=== PATIENT | male | born 1945 | race Caucasian/White ===

== ENCOUNTER 2020-05-04 11:55 | Outpatient (CLI) | payer OTHER, SELFPAY ==
[2020-05-04 12:19] LABS: Basophils % 0.4 %; Eosinophils # 0.1 10^3/uL (0.0-0.8); Eosinophils % 1.9 %; Hemoglobin 13.7 g/dL (11.7-16.6); Lymphocytes # 1.5 10^3/uL (0.8-4.8); Lymphocytes % 28.1 %; Mean Corpuscular HGB Conc 32.6 g/dL (30.0-36.0); Mean Corpuscular Hemoglobin 30.6 pg (28.0-34.0); Mean Platelet Volume 9.4 fL (7.4-10.4); Monocytes # 0.5 10^3/uL (0.2-0.9); Monocytes % 9.7 %; Neutrophils # 3.2 10^3/uL (1.8-7.7); Neutrophils % 59.7 %; Nucleated Red Blood Cells % 0 %; Platelet Count 225 10^3/cmm (130-400); Red Blood Count 4.47 10^6/uL (4.1-5.3); White Blood Count 5.4 10^3/uL (4.0-10.0)
[2020-05-04 12:47] LABS: Alanine Aminotransferase 18 U/L (0-41); Albumin Level 4.3 g/dL (3.5-5.2); Alkaline Phosphatase 82 IU/L (40-130); Anion Gap 14.4 (5-19); Aspartate Amino Transferase 21 U/L (0-40); Blood Urea Nitrogen 11 mg/dL (8-23); Calcium 9.6 mg/dL (8.5-10.5); Carbon Dioxide 28 mmol/L (22-29); Chloride 101 mmol/L (98-107); Globulin 2.3 g/dL (1.3-4.6); Glucose 106 mg/dL (65-115); Osmolality Calculated 284 mOsm/kg (285-295); Potassium 4.4 mmol/L (3.5-5.1); Sodium 139 mmol/L (136-145); Total Bilirubin 0.6 mg/dL (0.15-1.2); Total Protein 6.6 g/dL (6.6-8.7)
--- NOTE | 2020-05-08 10:32 | ONC FU_ITS ---
Dr. Tellez Patient Follow-Up Note Patient: Rory Bautista Unit #: [id number]: 1945 Dicatated By: Lux Tellez M.D.Date of Visit:May 04, 2020 Onc Med Follow-up/Prog Note Chief Complaint: History of Present Illness: This is a 74 year-old man with rectal adenocarcinoma, at least stage III by clinical evaluation. He had presented with bilateral hip and pelvic pain. His CT of the pelvis on 12/07/2015 without contrast revealed rectosigmoid colon thickening and right acetabular and left iliac bone sclerosis. The patient was further evaluated at [facility] in [place], [place]. The biopsy via colonoscopy on 01/05/16 revealed malignant invasive adenocarcinoma in the rectum. The patient was first seen by Dr. Huerta on 01/19/2016. His staging PET/CT on 02/11/2016 showed primary rectal cancer with additional metastatic presacral lymph node, but no evidence of distant metastatic disease. Thus, clinical stage at least III (T1, N1, M0). A surgical consultation was obtained with Dr. Hernandez. Preoperative concurrent chemotherapy with Xeloda and radiation treatment delivered 02/19/2016 - 04/09/16. Restaging CT of the chest/abdomen/pelvis on 04/24/2016 showed no evidence of distant metastatic disease. He started his first cycle of FOLFOX on 08/15/16. He had significant performance decline after cycle 2. He also developed new shortness of breath and lower back/sacral/rectal pain. Restaging CTs were requested. They had to be approved by his [employer] insurance, which took over 1 week to get the approval. He did have the CTs on . CT of the chest did show bilateral hemithorax and hemidiaphragm pleural thickening most pronounced posteriorly and inferiorly adjacent to the right lower lobe and is new from 04/24/2016. CT of the abdomen revealed possible new retroperitoneal lymph node adjacent to the abdominal aorta distally. Other deep mesenteric lymph nodes seen on 04/24/2016 were resolved. PET scan performed 10/13/16 was consistent with a complete response to treatment, and he received cycle 3 on 10/22/16, but Oxaliplatin was reduced due to neuropathy. He underwent low anterior resection with looped ileostomy on 06/12/2016. Pathology reported low-grade (moderately differentiated) adenocarcinoma with invasion through the muscularis propria. The residual tumor measured 2.5 x 2.5 cm, but it was reported to be mainly fibrosis. There was involvement in 2 of 18 lymph nodes. His posttreatment stage was thus IIB (ypT3, ypN1b, M0). He then began postoperative adjuvant chemotherapy with modified FOLFOX, cycle 1 day 1 on 08/15/2016. That treatment was tolerated well, and he continued with cycle 2 on 08/29/2016. He had subsequently presented with pain in the right lower back/right flank area, severe enough that his third cycle was delayed. He was evaluated with PET/CT 10/13/2016. It showed no evidence of residual or recurrent disease, and he continued with cycle 3 on 10/22/2016. At that time, though, he had developed significant neuropathy, and the oxaliplatin dosage was reduced to 65 mg/m???. He completed 8 cycles of modified FOLFOX on 01/02/2017. Restaging CT scans of the chest, abdomen, and pelvis on 01/14/2017 showed no evidence of disease progression in the chest. The right lower lobe superior segment subcentimeter pulmonary nodule was unchanged. There was no evidence of disease progression in the abdomen or pelvis. A 6.9 mm retroperitoneal lymph node/nodule had shown interval decrease in size from 12 mm. He subsequently underwent reversal of his ostomy. Surveillance CT scans of the chest, abdomen, and pelvis on 10/02/2017 showed stable 3 mm nodule in the superior segment of the right lower lobe and a new 3 mm nodule in the periphery of the left lower lobe. There was slight increase in the amount of perirectal fat thickening and stranding in the very slight increase in the soft tissue thickening along the anterior right lateral rectal wall. Early recurrent rectal neoplasm could not be excluded. Also noted was a stable sclerotic focus in the left ilium measuring 12 mm and an additional sclerotic focus in the left scapula, probably representing a bone island. Surveillance CT scans of the chest, abdomen, and pelvis on 03/28/2018 showed stable right lower lobe and left lower lobe subcentimeter pulmonary nodules. There was no new or suspicious mass or nodule noted. There was improving perirectal soft tissue stranding and rectal wall thickening with no evidence of metastatic involvement in the abdomen/pelvis. His CT scans on 09/26/2018 showed stable cyst subcentimeter nodules in the superior segment of the right upper and left lower lobes with no evidence for disease progression in the chest, abdomen or pelvis. Surveillance CT scans on 10/28/2019 showed no evidence of recurrent or metastatic disease in the chest, abdomen, or pelvis. He continued observation/expectant management. He is seen for a scheduled visit. He has been feeling pretty good generally. He still gets tired, and his activity is somewhat limited. He says his energy is getting better, though. ECOG score is 1. He has good appetite. He has no fever or night sweats. During the past month he has had sores at the corners of his mouth. He has not had sore throat or difficulty swallowing. He has no shortness of breath, cough, or chest pain. His bowels are still a little inconsistent, but they also are getting better. He has not had diarrhea. He has no other GI or complaints. He has pain in his right wrist, which is not new. He has no other joint or bone pain. He has no residual neuropathy symptoms. Medications: HYDROcodone-Acetaminophen 1 Tablet (of 5-325 mg) Oral q 4 hours PRN, Imodium A-D Tablet Oral PRN Allergies: No Known Allergies. Review of Systems: Constitutional - He feels pretty good generally. His energy is getting better. He is doing light work. His appetite is good. His weight is up a few pounds. No fever, chills, hot flashes, or night sweats. ECOG score is 1, ENMT - No sinus congestion/drainage. Recently he has had sores at the corners of his mouth. No sore throat or difficulty swallowing, Hematologic/Lymphatic - He bruises easily, Respiratory - No shortness of breath. No cough. No pleuritic pain or hemoptysis, Cardiovascular - No angina pain. No palpitations, Gastrointestinal - No nausea or vomiting. No heartburn or acid reflux. His bowels are still somewhat inconsistent, but they are getting better. He does not have diarrhea. No blood in the stool or black stools, Genitourinary (M) - No dysuria or hematuria. No urinary frequency. No urgency or incontinence, Musculoskeletal - He has some pain in his right wrist. He has no other joint or bone pain, Neurologic - No headache or dizziness. No numbness/paresthesias or other neuropathy symptoms, Psychiatric - No anxiety or depression. No insomnia. Vital Signs: Performed on May 04, 2020 13:07 Height - 68.00 in Weight - 193.0 lbs (HIGH) BSA - 2.01 sq.m BMI - 29.35 Temperature - 97.5 F (LOW) Pulse - 65 /min Respiration - 20 /min BP - 134/83 mm(hg) O2 Sat - 97 % Pain - 0 Physical Examination: Constitutional - He looks good generally, Eyes - Sclerae nonicteric. Conjunctivae clear, ENMT - No lesions noted in the oral cavity, Hematologic/Lymphatic - No cervical, clavicular, or axillary adenopathy, Respiratory - Lungs are clear, Cardiovascular - Heart rhythm is regular. There is no murmur, gallop or rub noted, Abdomen - Soft. Liver and spleen are not enlarged. There is no abdominal mass or ascites noted and there is no inguinal adenopathy, Extremities - No edema. Pedal pulses are palpable bilaterally, Neurologic - No focal neurologic deficits noted. Lab/Imaging: Test performed on May 04, 2020 12:07 Sodium 139 mmol/L Potassium 4.4 mmol/L Chloride 101 mmol/L CO2 28 mmol/L Anion Gap 14.4 BUN 11 mg/dL Creatinine 1.1 mg/dL Cr Clearance (Est) 72.9500 mL/min Glucose 106 mg/dL Calcium 9.6 mg/dL Protein, Total 6.6 g/dL Albumin 4.3 g/dL Globulin 2.3 g/dL Bilirubin, Total 0.6 mg/dL ALT (SGPT) 18 U/L AST (SGOT) 21 U/L Alkaline Phosphatase 82 IU/L WBC 5.4 10 3/uL RBC 4.47 10 6/uL HGB 13.7 g/dL HCT 42.0 % MCV 94.0 fL MCH 30.6 pg MCHC 32.6 g/dL RDW 13.0 % Platelet Count 225 10 3/cmm MPV 9.4 fL Neutrophils 3.2 10 3/uL Lymphocytes 1.5 10 3/uL Monocytes 0.5 10 3/uL Eosinophils 0.1 10 3/uL Basophils 0.0 10 3/uL Neutrophil % 59.7 % Lymphocyte % 28.1 % Monocyte % 9.7 % Eosinophil % 1.9 % Basophils % 0.4 % CEA 3.0 ng/mL Impression: 1. Patient with moderately differentiated adenocarcinoma of the rectum, at least stage III by clinical evaluation at initial diagnosis in January 2016. 2. He underwent neoadjuvant chemoradiation, completed on 04/09/2016 to a total radiation dose of 5580 cGy. 3. He underwent low anterior resection with loop ileostomy on 06/12/2016. Final staging was IIIB (ypT3, ypN1b, M0). 4. He was given postoperative adjuvant chemotherapy with modified FOLFOX, completed in January 2017. Restaging CT scans on 01/14/2017 showed no evidence of disease progression in the chest. The right lower lobe superior segment subcentimeter pulmonary nodule was unchanged. There was no evidence of disease progression in the abdomen or pelvis. A 6.9 mm retroperitoneal lymph node/nodule had shown interval decrease in size. He subsequently underwent reversal of his ostomy. He had some fatigue following his chemoradiation and his subsequent postoperative adjuvant chemotherapy, and he also had some residual neuropathy. During followup there has been gradual improvement in his activity tolerance. His neuropathy symptoms have completely resolved. Overall, he appears to be doing well clinically with no evidence of recurrence of the rectal cancer. Plan: He remains on observation/expectant management for the rectal cancer. He will be scheduled for a follow-up visit with surveillance CT scans in 6 months. Signed By: Lux Tellez M.D. <<Signature on File>>
== END 2020-05-04 11:56 | disposition home or self-care (01) ==
LOC: ONCMED 12:00
PROVIDERS: PCP Family Medicine; Visit Provider Internal Medicine Medical Oncology
DX: Z08 Encounter for follow-up examination after completed treatment for malignant neoplasm (principal); Z85.048 Personal history of other malignant neoplasm of rectum, rectosigmoid junction, and anus; Z92.21 Personal history of antineoplastic chemotherapy; Z92.3 Personal history of irradiation
CPT/HCPCS: 36415; 80053; 82378; 85025; G0463

== ENCOUNTER 2020-10-24 09:31 | Outpatient (CLI) | payer OTHER, SELFPAY ==
--- NOTE | 2020-10-24 09:44 | CT_ITS ---
WS: [id number] CT CHEST, ABDOMEN, AND PELVIS TECHNIQUE: Contrast-enhanced CT of the chest, abdomen, and pelvis with coronal and sagittal reformatt ed images. CLINICAL INFORMATION: COLON CANCER COMPARISON: DLP: 2340.[address] scans at [facility] use at least one of these dose optimization techniques: automat ed exposure control; mA and/or kV adjustment per patient size (includes targeted exams where dose is matched to clinical indication); or iterative reconstruction. CT CHEST: Lungs are well aerated. No acute pulmonary infiltrates. Previously described noncalcified nodule in t he super segment right lower lobe measures 4 mm today compared to 3 mm previous. Stable bilateral upp er lung pleural nodularity and pleural thickening. Slight pleural thickening right lung base. No medi astinal or hilar lymphadenopathy. No axillary lymphadenopathy. Normal GE junction. CT ABDOMEN AND PELVIS: Diffuse fatty infiltration of the liver. Normal gallbladder. Portal vein and splenic vein are patent. Normal spleen. Normal pancreas. Adrenal glands are normal. Normal renal parenchymal enhancement. No hydronephrosis. Diverticulosis. No evidence of acute diverticulitis. No evidence of small or large bowel obstruction. Incidental tiny fat-containing umbilical hernia. Fat-containing left inguinal hernia. No periaortic or retroperitoneal lymphadenopathy. No pelvic lymphadenopathy. No inguinal lymphadenopathy. CT/CT chest abd pel w con* IMPRESSION: 1. No evidence of progressed disease in the chest abdomen or pelvis. 2. Right lower lobe superior segment noncalcified nodule slightly larger today measuring 4 mm. Recommend 6 month follow-up. 3. No adenopathy in the chest abdomen or pelvis. 4. Diverticulosis. 5. No other significant changes.
[2020-10-24] MEDS: iohexol 300 mg/mL 50 mL Btl PO (10:02)
[2020-10-24] MEDS: iohexol 300 mg/mL 100 mL Btl IV (11:01)
== END 2020-10-24 09:32 | disposition home or self-care (01) ==
PROVIDERS: PCP Family Medicine; Visit Provider Internal Medicine Medical Oncology
DX: C20 Malignant neoplasm of rectum (principal); K57.90 Diverticulosis of intestine, part unspecified, without perforation or abscess without bleeding
CPT/HCPCS: 71260; 74177; Q9967

== ENCOUNTER 2020-10-24 09:48 | Outpatient (CLI) | payer OTHER, SELFPAY ==
[2020-10-24 10:20] LABS: Basophils % 0.5 %; Eosinophils # 0.1 10^3/uL (0.0-0.8); Eosinophils % 2.2 %; Hematocrit 46.5 % (42.0-52.0); Hemoglobin 15.1 g/dL (11.7-16.6); Lymphocytes # 1.5 10^3/uL (0.8-4.8); Lymphocytes % 23.7 %; Mean Corpuscular HGB Conc 32.5 g/dL (30.0-36.0); Mean Corpuscular Hemoglobin 30.8 pg (28.0-34.0); Mean Corpuscular Volume 94.9 fL (80-94); Mean Platelet Volume 9.4 fL (7.4-10.4); Monocytes # 0.5 10^3/uL (0.2-0.9); Monocytes % 7.9 %; Neutrophils # 4.12 10^3/uL (1.8-7.7); Neutrophils % 65.2 %; Nucleated Red Blood Cells % 0 %; Platelet Count 258 10^3/cmm (130-400); Red Cell Distribution Width 13.6 % (12.1-15.1); White Blood Count 6.3 10^3/uL (4.0-10.0)
[2020-10-24 10:49] LABS: Alanine Aminotransferase 23 U/L (0-41); Albumin Level 4.4 g/dL (3.5-5.2); Alkaline Phosphatase 100 IU/L (40-130); Aspartate Amino Transferase 23 U/L (0-40); Blood Urea Nitrogen 11 mg/dL (8-23); Calcium 9.2 mg/dL (8.5-10.5); Carbon Dioxide 30 mmol/L (22-29); Chloride 101 mmol/L (98-107); Globulin 2.9 g/dL (1.3-4.6); Glucose 105 mg/dL (65-115); Osmolality Calculated 290 mOsm/kg (285-295); Sodium 140 mmol/L (136-145); Total Bilirubin 0.9 mg/dL (0.15-1.2); Total Protein 7.3 g/dL (6.6-8.7)
[2020-10-24 10:54] LABS: Anion Gap 13.2 (5-19); Potassium 4.2 mmol/L (3.5-5.1)
[2020-10-24 11:36] LABS: Carcinoembryonic Antigen 3.2 ng/mL (0.0-4.7)
== END 2020-10-24 09:49 | disposition home or self-care (01) ==
PROVIDERS: PCP Family Medicine; Visit Provider Internal Medicine Medical Oncology
DX: C20 Malignant neoplasm of rectum (principal)
CPT/HCPCS: 36415; 80053; 82378; 85025

== ENCOUNTER 2020-11-01 05:50 | Outpatient (CLI) | payer OTHER, SELFPAY ==
--- NOTE | 2020-11-04 14:39 | ONC FU_ITS ---
Dr. Tellez Patient Follow-Up Note Patient: Rory Bautista Unit #: [id number]: 1945 Dicatated By: Lux Tellez M.D.Date of Visit:Nov 01, 2020 Onc Med Follow-up/Prog Note Chief Complaint: History of Present Illness: This is a 74 year-old man with rectal adenocarcinoma, at least stage III by clinical evaluation. He had presented with bilateral hip and pelvic pain. His CT of the pelvis on 12/07/2015 without contrast revealed rectosigmoid colon thickening and right acetabular and left iliac bone sclerosis. The patient was further evaluated at [facility] in [place], [place]. The biopsy via colonoscopy on 01/05/16 revealed malignant invasive adenocarcinoma in the rectum. The patient was first seen by Dr. Huerta on 01/19/2016. His staging PET/CT on 02/11/2016 showed primary rectal cancer with additional metastatic presacral lymph node, but no evidence of distant metastatic disease. Thus, clinical stage at least III (T1, N1, M0). A surgical consultation was obtained with Dr. Hernandez. Preoperative concurrent chemotherapy with Xeloda and radiation treatment delivered 02/19/2016 - 04/09/16. Restaging CT of the chest/abdomen/pelvis on 04/24/2016 showed no evidence of distant metastatic disease. He started his first cycle of FOLFOX on 08/15/16. He had significant performance decline after cycle 2. He also developed new shortness of breath and lower back/sacral/rectal pain. Restaging CTs were requested. They had to be approved by his [employer] insurance, which took over 1 week to get the approval. He did have the CTs on . CT of the chest did show bilateral hemithorax and hemidiaphragm pleural thickening most pronounced posteriorly and inferiorly adjacent to the right lower lobe and is new from 04/24/2016. CT of the abdomen revealed possible new retroperitoneal lymph node adjacent to the abdominal aorta distally. Other deep mesenteric lymph nodes seen on 04/24/2016 were resolved. PET scan performed 10/13/16 was consistent with a complete response to treatment, and he received cycle 3 on 10/22/16, but Oxaliplatin was reduced due to neuropathy. He underwent low anterior resection with looped ileostomy on 06/12/2016. Pathology reported low-grade (moderately differentiated) adenocarcinoma with invasion through the muscularis propria. The residual tumor measured 2.5 x 2.5 cm, but it was reported to be mainly fibrosis. There was involvement in 2 of 18 lymph nodes. His posttreatment stage was thus IIB (ypT3, ypN1b, M0). He then began postoperative adjuvant chemotherapy with modified FOLFOX, cycle 1 day 1 on 08/15/2016. That treatment was tolerated well, and he continued with cycle 2 on 08/29/2016. He had subsequently presented with pain in the right lower back/right flank area, severe enough that his third cycle was delayed. He was evaluated with PET/CT 10/13/2016. It showed no evidence of residual or recurrent disease, and he continued with cycle 3 on 10/22/2016. At that time, though, he had developed significant neuropathy, and the oxaliplatin dosage was reduced to 65 mg/m???. He completed 8 cycles of modified FOLFOX on 01/02/2017. Restaging CT scans of the chest, abdomen, and pelvis on 01/14/2017 showed no evidence of disease progression in the chest. The right lower lobe superior segment subcentimeter pulmonary nodule was unchanged. There was no evidence of disease progression in the abdomen or pelvis. A 6.9 mm retroperitoneal lymph node/nodule had shown interval decrease in size from 12 mm. He subsequently underwent reversal of his ostomy. Surveillance CT scans of the chest, abdomen, and pelvis on 10/02/2017 showed stable 3 mm nodule in the superior segment of the right lower lobe and a new 3 mm nodule in the periphery of the left lower lobe. There was slight increase in the amount of perirectal fat thickening and stranding in the very slight increase in the soft tissue thickening along the anterior right lateral rectal wall. Early recurrent rectal neoplasm could not be excluded. Also noted was a stable sclerotic focus in the left ilium measuring 12 mm and an additional sclerotic focus in the left scapula, probably representing a bone island. Surveillance CT scans of the chest, abdomen, and pelvis on 03/28/2018 showed stable right lower lobe and left lower lobe subcentimeter pulmonary nodules. There was no new or suspicious mass or nodule noted. There was improving perirectal soft tissue stranding and rectal wall thickening with no evidence of metastatic involvement in the abdomen/pelvis. His CT scans on 09/26/2018 showed stable cyst subcentimeter nodules in the superior segment of the right upper and left lower lobes with no evidence for disease progression in the chest, abdomen or pelvis and repeat CT scans on 10/28/2019 showed no evidence of recurrent or metastatic disease in the chest, abdomen, or pelvis. He continued observation/expectant management. His surveillance CT scans on 10/24/2020 showed no evidence of progressed or metastatic disease in the chest, abdomen, or pelvis. The right lower lobe superior segment noncalcified pulmonary nodule did appear slightly larger measuring 4 mm compared to 3 mm on the prior study. He is seen for a scheduled visit. He has been feeling pretty good generally. His energy has been okay. He is able to do light work. ECOG score is 1. Appetite is good. He has gained weight. He does not have fever or night sweats. He has no shortness of breath, cough, or chest pain. His bowel function has continued to get better, though he still tends to have water to loose stools daily. He also reports having sharp pain in the lower abdomen, typically just before a bowel movement. He has no complaints. He has some pain in his left hip when he first gets up. He has no other joint or bone pain. He still have some numbness in his fingers. He also reports having an area in his upper right chest/right shoulder which feels completely numb. Medications: HYDROcodone-Acetaminophen 1 Tablet (of 5-325 mg) Oral q 4 hours PRN, Imodium A-D Tablet Oral PRN Allergies: No Known Allergies. Review of Systems: Constitutional - He has pretty good energy. He is able to do light work. Appetite is good. He has gained weight. He has no fever or night sweats. ECOG score is 1, ENMT - No sinus congestion/drainage. No mouth sores. No sore throat or difficulty swallowing, Hematologic/Lymphatic - No abnormal bruising or bleeding, Respiratory - No shortness of breath. No cough. No pleuritic pain or hemoptysis, Cardiovascular - No angina pain. No palpitations, Gastrointestinal - No nausea or vomiting. No heartburn or acid reflux. His bowel function has continued to gradually improve. He still has some loose stools once or twice a day. He does complain of having sharp pain in the lower abdomen which typically occurs just before a bowel movement. No blood in the stool or black stools, Genitourinary (M) - No dysuria or hematuria. No urinary frequency. No urgency or incontinence, Musculoskeletal - He has pain in his left hip when he first gets up in the morning. He has no other joint or bone pain, Integumentary - No skin rash, Neurologic - No headache or dizziness. He still has some numbness in his fingers. He also reports having an area in his upper right chest/shoulder area that feels completely numb. No other focal neurologic symptoms, Psychiatric - No anxiety or depression. No insomnia. Vital Signs: Performed on Nov 01, 2020 12:59 Height - 68.00 in Weight - 203.8 lbs (HIGH) BSA - 2.06 sq.m BMI - 30.99 (HIGH) Temperature - 98.3 F (LOW) Pulse - 70 /min Respiration - 18 /min BP - 142/88 mm(hg) (HIGH) O2 Sat - 97 % Pain - 0 Physical Examination: Constitutional - He looks good generally, Eyes - Sclerae nonicteric. Conjunctivae clear, ENMT - No lesions noted in the oral cavity, Hematologic/Lymphatic - No cervical, clavicular, or axillary adenopathy, Respiratory - Lungs are clear, Cardiovascular - Heart rhythm is regular. There is no murmur, gallop or rub noted, Abdomen - Soft. Liver and spleen are not enlarged. There is no abdominal mass or ascites noted and there is no inguinal adenopathy, Extremities - No edema, Neurologic - No focal neurologic deficits noted. Lab/Imaging: Test performed on Oct 24, 2020 10:10 Sodium 140 mmol/L Potassium 4.2 mmol/L Chloride 101 mmol/L CO2 30 mmol/L Anion Gap 13.2 BUN 11 mg/dL Creatinine 1.0 mg/dL Cr Clearance (Est) 80.2500 mL/min Glucose 105 mg/dL Osmolality - Calculated 290 mOsm/kg Calcium 9.2 mg/dL Protein, Total 7.3 g/dL Albumin 4.4 g/dL Globulin 2.9 g/dL Bilirubin, Total 0.9 mg/dL ALT (SGPT) 23 U/L AST (SGOT) 23 U/L Alkaline Phosphatase 100 IU/L WBC 6.3 10 3/uL RBC 4.90 10 6/uL HGB 15.1 g/dL HCT 46.5 % MCV 94.9 fL MCH 30.8 pg MCHC 32.5 g/dL RDW 13.6 % Platelet Count 258 10 3/cmm MPV 9.4 fL Neutrophils 4.12 10 3/uL Lymphocytes 1.5 10 3/uL Monocytes 0.5 10 3/uL Eosinophils 0.1 10 3/uL Basophils 0.0 10 3/uL Neutrophil % 65.2 % Lymphocyte % 23.7 % Monocyte % 7.9 % Eosinophil % 2.2 % Basophils % 0.5 % NRBC % 0 % CEA 3.2 ng/mL Impression: 1. Patient with moderately differentiated adenocarcinoma of the rectum, at least stage III by clinical evaluation at initial diagnosis in January 2016. 2. He underwent neoadjuvant chemoradiation, completed on 04/09/2016 to a total radiation dose of 5580 cGy. 3. He underwent low anterior resection with loop ileostomy on 06/12/2016. Final staging was IIIB (ypT3, ypN1b, M0). 4. He was given postoperative adjuvant chemotherapy with modified FOLFOX, completed in January 2017. Restaging CT scans on 01/14/2017 showed no evidence of disease progression in the chest. The right lower lobe superior segment subcentimeter pulmonary nodule was unchanged. There was no evidence of disease progression in the abdomen or pelvis. A 6.9 mm retroperitoneal lymph node/nodule had shown interval decrease in size. He subsequently underwent reversal of his ostomy. He had some fatigue following his chemoradiation and his subsequent postoperative adjuvant chemotherapy, and he also had some residual neuropathy. During followup he had gradual improvement in his activity tolerance and his neuropathy symptoms mostly resolved. His clinical status at this point appears stable. He has continued to have some issues with bowel function and he has been having some lower abdominal pain just prior to bowel movements, but that also has shown gradual improvement. Overall, he appears to be doing well with no evidence of recurrence of the rectal cancer. Plan: He remains on observation/expectant management for the rectal cancer. He will be scheduled for a follow-up visit in 6 months. Signed By: Lux Tellez M.D. <<Signature on File>>
== END 2020-11-01 05:51 | disposition home or self-care (01) ==
LOC: ONCMED 05:51
PROVIDERS: PCP Family Medicine; Visit Provider Internal Medicine Medical Oncology
DX: Z08 Encounter for follow-up examination after completed treatment for malignant neoplasm (principal); Z85.048 Personal history of other malignant neoplasm of rectum, rectosigmoid junction, and anus; Z92.21 Personal history of antineoplastic chemotherapy; Z92.3 Personal history of irradiation
CPT/HCPCS: G0463

== ENCOUNTER 2021-04-04 11:26 | Outpatient (CLI) | payer OTHER, SELFPAY ==
[2021-04-04 12:12] LABS: Basophils % 0.5 %; Eosinophils # 0.1 10^3/uL (0.0-0.8); Eosinophils % 1.5 %; Hematocrit 46.3 % (42.0-52.0); Hemoglobin 15.1 g/dL (11.7-16.6); Lymphocytes # 1.8 10^3/uL (0.8-4.8); Lymphocytes % 23.5 %; Mean Corpuscular HGB Conc 32.6 g/dL (30.0-36.0); Mean Corpuscular Hemoglobin 30.4 pg (28.0-34.0); Mean Corpuscular Volume 93.3 fL (80-94); Mean Platelet Volume 9.6 fL (7.4-10.4); Monocytes # 0.5 10^3/uL (0.2-0.9); Neutrophils # 5.11 10^3/uL (1.8-7.7); Neutrophils % 68.1 %; Nucleated Red Blood Cells % 0 %; Platelet Count 274 10^3/cmm (130-400); Red Blood Count 4.96 10^6/uL (4.1-5.3); Red Cell Distribution Width 13.4 % (12.1-15.1); White Blood Count 7.5 10^3/uL (4.0-10.0)
[2021-04-04 12:39] LABS: Carcinoembryonic Antigen 2.6 ng/mL (0.0-4.7)
[2021-04-04 12:50] LABS: Alanine Aminotransferase 38 U/L (0-41); Albumin Level 4.3 g/dL (3.5-5.2); Alkaline Phosphatase 109 IU/L (40-130); Anion Gap 13.3 (5-19); Aspartate Amino Transferase 36 U/L (0-40); Blood Urea Nitrogen 7 mg/dL (8-23); Calcium 8.5 mg/dL (8.5-10.5); Carbon Dioxide 28 mmol/L (22-29); Chloride 101 mmol/L (98-107); Globulin 2.6 g/dL (1.3-4.6); Glucose 94 mg/dL (65-115); Osmolality Calculated 284 mOsm/kg (285-295); Potassium 4.3 mmol/L (3.5-5.1); Sodium 138 mmol/L (136-145); Total Bilirubin 0.6 mg/dL (0.15-1.2); Total Protein 6.9 g/dL (6.6-8.7)
--- NOTE | 2021-04-08 10:03 | ONC FU_ITS ---
Dr. Tellez Patient Follow-Up Note Patient: Rory Bautista Unit #: [id number]: 1945 Dicatated By: Lux Tellez M.D.Date of Visit:April 04, 2021 Onc Med Follow-up/Prog Note Chief Complaint: History of Present Illness: This is a 75 year-old man with rectal adenocarcinoma, at least stage III by clinical evaluation. He had presented with bilateral hip and pelvic pain. His CT of the pelvis on 12/07/2015 without contrast revealed rectosigmoid colon thickening and right acetabular and left iliac bone sclerosis. The patient was further evaluated at [facility] in [place], [place]. The biopsy via colonoscopy on 01/05/16 revealed malignant invasive adenocarcinoma in the rectum. The patient was first seen by Dr. Huerta on 01/19/2016. His staging PET/CT on 02/11/2016 showed primary rectal cancer with additional metastatic presacral lymph node, but no evidence of distant metastatic disease. Thus, clinical stage at least III (T1, N1, M0). A surgical consultation was obtained with Dr. Hernandez. Preoperative concurrent chemotherapy with Xeloda and radiation treatment delivered 02/19/2016 - 04/09/2016. Restaging CT of the chest/abdomen/pelvis on 04/24/2016 showed no evidence of distant metastatic disease. He underwent low anterior resection with looped ileostomy on 06/12/2016. Pathology reported low-grade (moderately differentiated) adenocarcinoma with invasion through the muscularis propria. The residual tumor measured 2.5 x 2.5 cm, but it was reported to be mainly fibrosis. There was involvement in 2 of 18 lymph nodes. His posttreatment stage was thus IIB (ypT3, ypN1b, M0). He then began postoperative adjuvant chemotherapy with 8 cycles of modified FOLFOX, from 08/15/2016 through 01/02/2017. He had significant treatment related neuropathy, requiring a reduction in the oxaliplatin dosage beginning with cycle 3. Restaging CT scans of the chest, abdomen, and pelvis on 01/14/2017 showed no evidence of disease progression in the chest. The right lower lobe superior segment subcentimeter pulmonary nodule was unchanged. There was no evidence of disease progression in the abdomen or pelvis. A 6.9 mm retroperitoneal lymph node/nodule had shown interval decrease in size from 12 mm. He subsequently underwent reversal of his ostomy. Surveillance CT scans of the chest, abdomen, and pelvis on 10/02/2017 showed stable 3 mm nodule in the superior segment of the right lower lobe and a new 3 mm nodule in the periphery of the left lower lobe. There was slight increase in the amount of perirectal fat thickening and stranding in the very slight increase in the soft tissue thickening along the anterior right lateral rectal wall. Early recurrent rectal neoplasm could not be excluded. Also noted was a stable sclerotic focus in the left ilium measuring 12 mm and an additional sclerotic focus in the left scapula, probably representing a bone island. Surveillance CT scans of the chest, abdomen, and pelvis on 03/28/2018 showed stable right lower lobe and left lower lobe subcentimeter pulmonary nodules. There was no new or suspicious mass or nodule noted. There was improving perirectal soft tissue stranding and rectal wall thickening with no evidence of metastatic involvement in the abdomen/pelvis. His CT scans on 09/26/2018 showed stable cyst subcentimeter nodules in the superior segment of the right upper and left lower lobes with no evidence for disease progression in the chest, abdomen or pelvis and repeat CT scans on 10/28/2019 showed no evidence of recurrent or metastatic disease in the chest, abdomen, or pelvis. His surveillance CT scans on 10/24/2020 showed no evidence of progressed or metastatic disease in the chest, abdomen, or pelvis. The right lower lobe superior segment noncalcified pulmonary nodule did appear slightly larger measuring 4 mm compared to 3 mm on the prior study. He continued observation/expectant management. He is seen for a scheduled visit. He has been feeling pretty good generally, though he does complain that he wears out quickly. His activity is more limited. ECOG score is 2. He has good appetie. He has no fever or nights. He has no shortness of breath, cough, or chest pain. He occasionally has nausea. He has had ongoing issues with bowel function since his surgery. He has no complaints. He has joint pain, especially his right wrist. He also has pain in his right shoulder, and he has lower back pain. He occasionally has a little numbness in his fingers. He has no other neuropathy symptoms. Medications: HYDROcodone-Acetaminophen 1 Tablet (of 5-325 mg) Oral q 4 hours PRN, Imodium A-D Tablet Oral PRN Allergies: No Known Allergies. Vital Signs: Performed on April 04, 2021 16:06 Height - 68.00 in Weight - 203 lbs (LOW) BSA - 2.06 sq.m BMI - 30.87 (HIGH) Temperature - 98.1 F (LOW) Pulse - 75 /min Respiration - 18 /min BP - 148/88 mm(hg) (HIGH) O2 Sat - 98 % Pain - 0 Fatigue - 6 Physical Examination: Constitutional - He looks pretty good generally, Eyes - Sclerae nonicteric. Conjunctivae clear, ENMT - No lesions noted in the oral cavity, Hematologic/Lymphatic - No cervical, clavicular, or axillary adenopathy, Respiratory - Lungs are clear, Cardiovascular - Heart rhythm is regular. There is no murmur, gallop or rub noted, Abdomen - Soft. Liver and spleen are not enlarged. There is no abdominal mass or ascites noted and there is no inguinal adenopathy, Extremities - No edema, Neurologic - No focal neurologic deficits noted. Lab/Imaging: Test performed on April 04, 2021 11:48 Sodium 138 mmol/L Potassium 4.3 mmol/L Chloride 101 mmol/L CO2 28 mmol/L Anion Gap 13.3 BUN 7 mg/dL Creatinine 0.9 mg/dL Cr Clearance (Est) 92.37 mL/min Glucose 94 mg/dL Osmolality - Calculated 284 mOsm/kg Calcium 8.5 mg/dL Protein, Total 6.9 g/dL Albumin 4.3 g/dL Globulin 2.6 g/dL Bilirubin, Total 0.6 mg/dL ALT (SGPT) 38 U/L AST (SGOT) 36 U/L Alkaline Phosphatase 109 IU/L WBC 7.5 10 3/uL RBC 4.96 10 6/uL HGB 15.1 g/dL HCT 46.3 % MCV 93.3 fL MCH 30.4 pg MCHC 32.6 g/dL RDW 13.4 % Platelet Count 274 10 3/cmm MPV 9.6 fL Neutrophils 5.11 10 3/uL Lymphocytes 1.8 10 3/uL Monocytes 0.5 10 3/uL Eosinophils 0.1 10 3/uL Basophils 0.0 10 3/uL Neutrophil % 68.1 % Lymphocyte % 23.5 % Monocyte % 6.0 % Eosinophil % 1.5 % Basophils % 0.5 % NRBC % 0 % CEA 2.6 ng/mL Problem List: 1. Moderately differentiated adenocarcinoma of the rectum, at least stage III by clinical evaluation at initial diagnosis in January 2016. 2. Degenerative arthritis/degenerative disease of the spine. 3. Erectile dysfunction. Problems Addressed with this Encounter and Plan: 1. Patient with moderately differentiated adenocarcinoma of the rectum, at least stage III by clinical evaluation at initial diagnosis in January 2016. He underwent neoadjuvant chemoradiation, completed on 04/09/2016 to a total radiation dose of 5580 cGy. He underwent low anterior resection with loop ileostomy on 06/12/2016. Final staging was IIIB (ypT3, ypN1b, M0). He was given postoperative adjuvant chemotherapy with modified FOLFOX, completed in January 2017. During followup his surveillance CT scans have shown small pulmonary nodules, but they have remained stable. Overall, he has been doing well clinically with no evidence of recurrence of the rectal cancer. He remains on observation/expectant management. He will be scheduled for a follow-up visit in 6 months. 2. Degenerative arthritis/degenerative disease of the spine. He has some chronic pain. It is managed adequately with hydrocodone/APAP, which he takes only on a very occasional basis. 3. Erectile dysfunction. He will be given refills for sildafenil. Signed By: Lux Tellez M.D. <<Signature on File>>
== END 2021-04-04 11:27 | disposition home or self-care (01) ==
LOC: ONCMED 11:28
PROVIDERS: PCP Family Medicine; Visit Provider Internal Medicine Medical Oncology
DX: C20 Malignant neoplasm of rectum (principal); M47.9 Spondylosis, unspecified; N52.9 Male erectile dysfunction, unspecified; Z79.899 Other long term (current) drug therapy; Z92.21 Personal history of antineoplastic chemotherapy; Z92.3 Personal history of irradiation
CPT/HCPCS: 36415; 80053; 82378; 85025; 99214

== ENCOUNTER 2021-10-18 13:27 | Outpatient (CLI) | payer OTHER, SELFPAY ==
--- NOTE | 2021-10-18 | CT_ITS ---
WS: [id number] CT CHEST, ABDOMEN AND PELVIS WITH CONTRAST HISTORY: COLON CA TECHNIQUE: Contiguous 5 mm axial imaging performed through the chest, abdomen and pelvis with IV cont rast, oral contrast has been provided. Coronal and sagittal reformats chest. Coronal and sagittal ref ormats through the abdomen and pelvis. All CT scans at [facility] use at least one of these d ose optimization techniques: automated exposure control; mA and/or kV adjustment per patient size (in cludes targeted exams where dose is matched to clinical indication); or iterative reconstruction. CONTRAST: Omnipaque 300; 95 mL IV. DLP: 2402.94 mGycm COMPARISON: 10/24/2020 and 10/28/[address]: No new pulmonary nodules or mass. Previously described 4 mm nodule in the superior segment RIGHT lower lobe is unchanged. There is also mild bilateral pleural thickening which is stable. No me diastinal or hilar adenopathy. Pulmonary artery size is equal to the aorta. Mild atherosclerosis aort a. No pericardial or pleural effusions. Abdomen CT: Liver is normal size. Diffuse low attenuation from hepatic steatosis. No metastatic disea se to the liver. Normal gallbladder. Normal spleen, pancreas and adrenal glands. No renal obstruction or mass. Mild atherosclerosis aorta. No adenopathy within the abdomen or pelvis. No GI tract obstruction. Numerous diverticula are noted within the descending and sigmoid colon. No o bstructive pattern. No recurrent mass is identified at the rectum. The appendix is not identified. Pelvic CT: No free fluid within the pelvis. Urinary bladder is well distended. No adenopathy or ascit es. Bilateral patent inguinal canals containing fat only. Significant amount of fat within the LEFT i nguinal canal. There is also a large lipoma centered anterior to the RIGHT hip. CT/CT chest abd pel w con* IMPRESSION: 1. No evidence for recurrent disease throughout the chest, abdomen or pelvis. 2. Numerous diverticula throughout the descending and sigmoid colon. No acute diverticulitis. No recurrent mass identified. 3. Stable 5 mm nodule superior segment RIGHT lower lobe. 4. Hepatic steatosis with no metastatic disease.
[2021-10-18 13:59] LABS: Blood Urea Nitrogen 10 mg/dL (8-23)
[2021-10-18] MEDS: iohexol 300 mg/mL 100 mL Btl IV (14:03)
[2021-10-18] MEDS: iohexol 300 mg/mL 50 mL Btl PO (14:04)
== END 2021-10-18 13:28 | disposition home or self-care (01) ==
PROVIDERS: PCP Family Medicine; Visit Provider Internal Medicine Medical Oncology
DX: C20 Malignant neoplasm of rectum (principal); K57.30 Diverticulosis of large intestine without perforation or abscess without bleeding; R91.1 Solitary pulmonary nodule; K76.0 Fatty (change of) liver, not elsewhere classified
CPT/HCPCS: 71260; 74177; 82565; 84520; Q9967

== ENCOUNTER 2021-11-16 13:25 | Outpatient (CLI) | payer OTHER, SELFPAY ==
[2021-11-16 13:47] LABS: Basophils % 0.6 %; Eosinophils # 0.1 10^3/uL (0.0-0.8); Eosinophils % 1.1 %; Hematocrit 43.8 % (42.0-52.0); Hemoglobin 14.7 g/dL (11.7-16.6); Lymphocytes # 1.8 10^3/uL (0.8-4.8); Lymphocytes % 25.1 %; Mean Corpuscular HGB Conc 33.6 g/dL (30.0-36.0); Mean Corpuscular Hemoglobin 30.7 pg (28.0-34.0); Mean Corpuscular Volume 91.4 fl (80-94); Mean Platelet Volume 9.6 fL (7.4-10.4); Monocytes # 0.5 10^3/uL (0.2-0.9); Monocytes % 6.7 %; Neutrophils # 4.61 10^3/uL (1.8-7.7); Neutrophils % 66.2 %; Nucleated Red Blood Cells % 0 %; Platelet Count 238 10^3/cmm (130-400); Red Blood Count 4.79 10^6/uL (4.1-5.3); Red Cell Distribution Width 13.6 % (12.1-15.1)
[2021-11-16 14:07] LABS: Alanine Aminotransferase 18 U/L (0-41); Alkaline Phosphatase 88 IU/L (40-130); Anion Gap 17.5 (5-19); Aspartate Amino Transferase 18 U/L (0-40); Blood Urea Nitrogen 11 mg/dL (8-23); Calcium 8.7 mg/dL (8.5-10.5); Carbon Dioxide 24 mmol/L (22-29); Chloride 99 mmol/L (98-107); Globulin 2.6 g/dL (1.3-4.6); Glucose 102 mg/dL (65-115); Osmolality Calculated 282 mOsm/kg (285-295); Potassium 4.5 mmol/L (3.5-5.1); Sodium 136 mmol/L (136-145); Total Bilirubin 0.5 mg/dL (0.15-1.2); Total Protein 6.6 g/dL (6.6-8.7)
[2021-11-16 14:15] LABS: Carcinoembryonic Antigen 2.6 ng/mL (0.0-4.7)
--- NOTE | 2021-11-19 14:58 | ONC FU_ITS ---
Dr. Tellez Patient Follow-Up Note Patient: Rory Bautista Unit #: [id number]: 1945 Dicatated By: Lux Tellez M.D.Date of Visit:Nov 16, 2021 Onc Med Follow-up/Prog Note Chief Complaint: History of Present Illness: This is a 75 year-old man with rectal adenocarcinoma, at least stage III by clinical evaluation. He had presented with bilateral hip and pelvic pain. His CT of the pelvis on 12/07/2015 without contrast revealed rectosigmoid colon thickening and right acetabular and left iliac bone sclerosis. The patient was further evaluated at [facility] in [place], [place]. The biopsy via colonoscopy on 01/05/16 revealed malignant invasive adenocarcinoma in the rectum. The patient was first seen by Dr. Huerta on 01/19/2016. His staging PET/CT on 02/11/2016 showed primary rectal cancer with additional metastatic presacral lymph node, but no evidence of distant metastatic disease. Thus, clinical stage at least III (T1, N1, M0). A surgical consultation was obtained with Dr. Hernandez. Preoperative concurrent chemotherapy with Xeloda and radiation treatment delivered 02/19/2016 - 04/09/2016. Restaging CT of the chest/abdomen/pelvis on 04/24/2016 showed no evidence of distant metastatic disease. He underwent low anterior resection with looped ileostomy on 06/12/2016. Pathology reported low-grade (moderately differentiated) adenocarcinoma with invasion through the muscularis propria. The residual tumor measured 2.5 x 2.5 cm, but it was reported to be mainly fibrosis. There was involvement in 2 of 18 lymph nodes. His posttreatment stage was thus IIB (ypT3, ypN1b, M0). He then began postoperative adjuvant chemotherapy with 8 cycles of modified FOLFOX, from 08/15/2016 through 01/02/2017. He had significant treatment related neuropathy, requiring a reduction in the oxaliplatin dosage beginning with cycle 3. Restaging CT scans of the chest, abdomen, and pelvis on 01/14/2017 showed no evidence of disease progression in the chest. The right lower lobe superior segment subcentimeter pulmonary nodule was unchanged. There was no evidence of disease progression in the abdomen or pelvis. A 6.9 mm retroperitoneal lymph node/nodule had shown interval decrease in size from 12 mm. He subsequently underwent reversal of his ostomy. Surveillance CT scans of the chest, abdomen, and pelvis on 10/02/2017 showed stable 3 mm nodule in the superior segment of the right lower lobe and a new 3 mm nodule in the periphery of the left lower lobe. There was slight increase in the amount of perirectal fat thickening and stranding in the very slight increase in the soft tissue thickening along the anterior right lateral rectal wall. Early recurrent rectal neoplasm could not be excluded. Also noted was a stable sclerotic focus in the left ilium measuring 12 mm and an additional sclerotic focus in the left scapula, probably representing a bone island. Surveillance CT scans of the chest, abdomen, and pelvis on 03/28/2018 showed stable right lower lobe and left lower lobe subcentimeter pulmonary nodules. There was no new or suspicious mass or nodule noted. There was improving perirectal soft tissue stranding and rectal wall thickening with no evidence of metastatic involvement in the abdomen/pelvis. His CT scans on 09/26/2018 showed stable cyst subcentimeter nodules in the superior segment of the right upper and left lower lobes with no evidence for disease progression in the chest, abdomen or pelvis and repeat CT scans on 10/28/2019 showed no evidence of recurrent or metastatic disease in the chest, abdomen, or pelvis. His surveillance CT scans on 10/24/2020 showed no evidence of progressed or metastatic disease in the chest, abdomen, or pelvis. The right lower lobe superior segment noncalcified pulmonary nodule did appear slightly larger measuring 4 mm compared to 3 mm on the prior study. He continued observation/expectant management. Surveillance CT scans on 10/18/2021 showed no evidence of recurrent disease throughout the chest, abdomen, or pelvis. A 5 mm superior segment right lower lobe pulmonary nodule appeared stable. The liver showed evidence of hepatic steatosis, but there was no no metastatic disease noted. He is seen for a follow-up visit. He has been feeling pretty good generally. His energy lately has been getting better, though it is somewhat variable. ECOG score is 1. He has good appetite. He has no fever or night sweats. He has not had sore mouth or throat, and he has no difficulty swallowing. He does not complain of cough, and he has not been having shortness of breath or chest pain. His bowel function is still somewhat sporadic, though generally better. He has no other GI or complaints. He has been having some pain in his right wrist. He has no other joint or bone pain, but he says that his right upper chest/right shoulder area still sometimes feels numb. He has no other focal neurologic symptoms. Medications: HYDROcodone-Acetaminophen 1 Tablet (of 5-325 mg) Oral q 4 hours PRN, Imodium A-D Tablet Oral PRN Allergies: No Known Allergies. Vital Signs: Performed on Nov 16, 2021 16:13 Height - 68.00 in Weight - 187.8 lbs (LOW) BSA - 1.99 sq.m BMI - 28.56 Temperature - 97.8 F (LOW) Pulse - 89 /min Respiration - 18 /min BP - 133/84 mm(hg) O2 Sat - 97 % Pain - 0 Fatigue - 3 Physical Examination: Constitutional - He looks pretty good generally, Eyes - Sclerae nonicteric. Conjunctivae clear, ENMT - No lesions noted in the oral cavity, Hematologic/Lymphatic - No cervical, clavicular, or axillary adenopathy, Respiratory - Lungs are clear, Cardiovascular - Heart rhythm is regular. There is no murmur, gallop or rub noted, Abdomen - Soft. Liver and spleen are not enlarged. There is no abdominal mass or ascites noted and there is no inguinal adenopathy, Extremities - No edema, Neurologic - No focal neurologic deficits noted. Lab/Imaging: Test performed on Nov 16, 2021 13:40 Sodium 136 mmol/L Potassium 4.5 mmol/L Chloride 99 mmol/L CO2 24 mmol/L Anion Gap 17.5 BUN 11 mg/dL Creatinine 1.0 mg/dL Cr Clearance (Est) 76.90 mL/min Glucose 102 mg/dL Osmolality - Calculated 282 mOsm/kg Calcium 8.7 mg/dL Protein, Total 6.6 g/dL Albumin 4.0 g/dL Globulin 2.6 g/dL Bilirubin, Total 0.5 mg/dL ALT (SGPT) 18 U/L AST (SGOT) 18 U/L Alkaline Phosphatase 88 IU/L WBC 7.0 10 3/uL RBC 4.79 10 6/uL HGB 14.7 g/dL HCT 43.8 % MCV 91.4 fl MCH 30.7 pg MCHC 33.6 g/dL RDW 13.6 % Platelet Count 238 10 3/cmm MPV 9.6 fL Neutrophils 4.61 10 3/uL Lymphocytes 1.8 10 3/uL Monocytes 0.5 10 3/uL Eosinophils 0.1 10 3/uL Basophils 0.0 10 3/uL Neutrophil % 66.2 % Lymphocyte % 25.1 % Monocyte % 6.7 % Eosinophil % 1.1 % Basophils % 0.6 % NRBC % 0 % CEA 2.6 ng/mL Problem List: 1. Moderately differentiated adenocarcinoma of the rectum, at least stage III by clinical evaluation at initial diagnosis in January 2016. 2. Degenerative arthritis/degenerative disease of the spine. 3. Erectile dysfunction. Problems Addressed with this Encounter and Plan: 1. Patient with moderately differentiated adenocarcinoma of the rectum, at least stage III by clinical evaluation at initial diagnosis in January 2016. He underwent neoadjuvant chemoradiation, completed on 04/09/2016 to a total radiation dose of 5580 cGy. He underwent low anterior resection with loop ileostomy on 06/12/2016. Final staging was IIIB (ypT3, ypN1b, M0). He was given postoperative adjuvant chemotherapy with modified FOLFOX, completed in January 2017. During followup his surveillance CT scans have shown small pulmonary nodules, but they have remained stable. Overall, he has been doing well clinically. He is now close to 5 years out from completion of adjuvant chemotherapy with no evidence of recurrence of the rectal cancer. He will now continue his regular follow-up at the [facility]. I would recommend including a CEA level with his regular yearly lab studies. He does not require any further routine surveillance imaging, but he does need to continue his surveillance colonoscopies. I will see him again as needed. 2. Degenerative arthritis/degenerative disease of the spine. He has some chronic pain. It is managed adequately with hydrocodone/APAP, which he takes only on a very occasional basis. Signed By: Lux Tellez M.D. <<Signature on File>>
== END 2021-11-16 13:26 | disposition home or self-care (01) ==
PROVIDERS: PCP Family Medicine; Visit Provider Internal Medicine Medical Oncology
DX: Z08 Encounter for follow-up examination after completed treatment for malignant neoplasm (principal); Z85.040 Personal history of malignant carcinoid tumor of rectum; M47.9 Spondylosis, unspecified; N52.9 Male erectile dysfunction, unspecified
CPT/HCPCS: 36415; 80053; 82378; 85025; 99214

== ENCOUNTER 2022-07-18 13:14 | Outpatient (CLI) | payer OTHER, SELFPAY ==
--- NOTE | 2022-07-18 13:25 | CT_ITS ---
WS: [id number] LDCT LUNG CANCER SCREENING TECHNIQUE: Noncontrast CT of the chest with coronal and sagittal reformatted images. CLINICAL INFORMATION: TOBACCO USE COMPARISON: CT October 18, 2021 DLP: 88.00 mGy.cm DIvol: Mean CTDIvol: 1.60 (mGy) All CT scans at [facility] [place] [facility] use at least one of these dose optimization techniques: automat ed exposure control; mA and/or kV adjustment per patient size (includes targeted exams where dose is matched to clinical indication); or iterative reconstruction. FINDINGS: Stable 5 mm noncalcified nodule superior segment RIGHT lower lobe. No other suspicious pulmonary pare nchymal opacities. Adrenal Glands are normal. Noncontrast spleen is normal. Normal GE junction. Olivia l caliber thoracic aorta. Coronary calcification. Normal caliber descending thoracic aorta. No axilla ry lymphadenopathy. No mediastinal or hilar lymphadenopathy. CT/CT lung screening [id number] IMPRESSION: LUNG-RADS: 2-Benign Appearance or Behavior FOLLOW UP: 12 Month: Continue annual screening with LDCT
== END 2022-07-18 13:15 | disposition home or self-care (01) ==
LOC: RAD 13:15
PROVIDERS: PCP Family Medicine; Visit Provider Internal Medicine
DX: Z12.2 Encounter for screening for malignant neoplasm of respiratory organs (principal); Z72.0 Tobacco use
CPT/HCPCS: 71271

== ENCOUNTER 2023-07-30 13:39 | Outpatient (CLI) | payer OTHER, SELFPAY ==
--- NOTE | 2023-07-30 13:44 | CT_ITS ---
WS: [id number] LDCT LUNG CANCER SCREENING TECHNIQUE: Noncontrast CT of the chest with coronal and sagittal reformatted images. CLINICAL INFORMATION: LUNG CANCER SCREENING COMPARISON: CT 07/18/2022 DLP: 84.81 mGy.cm DIvol: Mean CTDIvol: 1.60 (mGy),Mean CTDIvol: 2.60 (mGy) All CT scans at [facility] use at least one of these dose optimization techniques: automat ed exposure control; mA and/or kV adjustment per patient size (includes targeted exams where dose is matched to clinical indication); or iterative reconstruction. FINDINGS: Again seen is the 5 mm noncalcified nodule superior segment RIGHT lower lobe unchanged compared to pr evious. Tiny nodule LEFT lower lobe laterally. No other suspicious pulmonary parenchymal opacities. No axillary lymphadenopathy. No mediastinal or hilar lymphadenopathy. Adrenal Glands are normal. Nonc ontrast spleen is normal. Normal GE junction. Normal caliber thoracic aorta. Coronary calcification. Normal caliber descending thoracic aorta. Mild thoracic curve. Mild spondylitic changes thoracic spi ne. IMPRESSION: CT/CT lung screening [id number] LUNG-RADS: 2-Benign Appearance or Behavior FOLLOW UP: 12 Month: Continue annual screening with LDCT
== END 2023-07-30 13:40 | disposition home or self-care (01) ==
PROVIDERS: PCP Family Medicine
DX: Z12.2 Encounter for screening for malignant neoplasm of respiratory organs (principal); Z87.891 Personal history of nicotine dependence
CPT/HCPCS: 71271

== ENCOUNTER 2024-08-05 15:18 | Outpatient (CLI) | payer OTHER, SELFPAY ==
--- NOTE | 2024-08-05 15:23 | CT_ITS ---
WS: [id number] LDCT LUNG CANCER SCREENING HISTORY: HX OF TOBACCO USE TECHNIQUE: Axial imaging performed from the apices to 1 cm below the costophrenic angles. Coronal and sagittal reformats are submitted with axial MIP series. All CT scans at [facility] [place] [facility] use at least one of these dose optimization techniques: automated exposure control; mA and/or kV adjustment per patient size (includes targeted exams where dose is matched to clinical indication); or iterativ e reconstruction. DLP: 73.10 mGy.cm DIvol: Mean CTDIvol: 1.70 (mGy) COMPARISON: 07/30/2023 Diagnostic quality: Satisfactory Lungs: Moderate changes of emphysema. No interval change in the 5 mm nodule in the superior RIGHT low er lobe. Stable bilateral pleural thickening. No new nodule. Interstitial thickening in the periphery of the lungs from chronic interstitial lung disease. Bilateral lower lobe bronchial wall thickening and early bronchiectasis. No endobronchial lesions. Heart: Normal size heart with no pericardial effusion.. Other findings: Minimal atherosclerosis aorta. Normal size pulmonary artery. No adenopathy. Normal ad renal glands. No destructive bone lesions. CT/CT lung screening [id number] IMPRESSION: LUNG-RADS: 2-Benign Appearance or Behavior FOLLOW UP: 12 Month: Continue annual screening with LDCT OTHER FINDINGS (S MODIFIER): None.
== END 2024-08-05 15:19 | disposition home or self-care (01) ==
LOC: RAD 15:18
PROVIDERS: PCP Family Medicine; Visit Provider Hospitalist
DX: Z12.2 Encounter for screening for malignant neoplasm of respiratory organs (principal); Z87.891 Personal history of nicotine dependence; J43.9 Emphysema, unspecified; R91.1 Solitary pulmonary nodule; J92.9 Pleural plaque without asbestos; J47.9 Bronchiectasis, uncomplicated
CPT/HCPCS: 71271

== ENCOUNTER 2025-08-17 11:51 | Outpatient (CLI) | payer OTHER, SELFPAY ==
--- NOTE | 2025-08-17 13:00 | CT_ITS ---
WS: [id number] LDCT LUNG CANCER SCREENING HISTORY: HX OF TOBACCO USE TECHNIQUE: Axial imaging performed from the apices to 1 cm below the costophrenic angles. Coronal and sagittal reformats are submitted with axial MIP series. All CT scans at [facility] use at least one of these dose optimization techniques: automated exposure control; mA and/or kV adjustment per patient size (includes targeted exams where dose is matched to clinical indication); or iterative reconstruction. DLP: 68.01 mGy.cm DIvol: Mean CTDIvol: 1.50 (mGy) COMPARISON: 08/05/2024 Diagnostic quality: Satisfactory Lungs: Mild pulmonary hyperexpansion and centrilobular emphysema. Mild bilateral pleural thickening in the upper thorax is stable. No change 5 mm noncalcified nodule superior segment RIGHT lower lobe. There are few areas of linear scarring in the lower lung lopez. No pneumonia. No endobronchial lesions. Heart: Normal size heart with no pericardial effusion.. Other findings: Minimal atherosclerosis aorta. Normal size pulmonary artery. No adenopathy. No adrenal mass. No destructive bone lesions. CT/CT lung screening [id number] IMPRESSION: LUNG-RADS: 2-Benign Appearance or Behavior FOLLOW UP: 12 Month: Continue annual screening with LDCT OTHER FINDINGS (S MODIFIER): None.
== END 2025-08-17 11:52 | disposition home or self-care (01) ==
LOC: RAD 11:52
PROVIDERS: PCP Family Medicine
DX: Z12.2 Encounter for screening for malignant neoplasm of respiratory organs (principal); Z87.891 Personal history of nicotine dependence; J43.2 Centrilobular emphysema; R91.1 Solitary pulmonary nodule; I70.0 Atherosclerosis of aorta; R91.8 Other nonspecific abnormal finding of lung field
CPT/HCPCS: 71271